=== PATIENT | female | born 1990 ===

== ENCOUNTER 2019-10-25 15:30 | Inpatient (IN) | payer OTHER ==
[~2019-10-25] VITALS: Ht 149.9 cm; Wt 70.8 kg
[2019-11-01] MEDS ORDERED: PRENATAL CAPLE1 EAC1 PO (19:17)
== END 2019-11-04 19:41 | disposition home or self-care (01) | DRG 807 ==
LOC: LDR 11-01 18:14 → SURG-SUITE 11-02 10:11 → OB/GYN 11-09 15:30
PROVIDERS: ADMIT Obstetrics & Gynecology
PROC: 10E0XZZ Delivery of Products of Conception, External Approach (ICD-10-PCS; principal; 2019-11-02)
PROC: 0W8NXZZ Division of Female Perineum, External Approach (ICD-10-PCS; 2019-11-02)
PROC: 4A1HXFZ Monitoring of Products of Conception, Cardiac Rhythm, External Approach (ICD-10-PCS; 2019-11-02)
PROC: 3E033VJ Introduction of Other Hormone into Peripheral Vein, Percutaneous Approach (ICD-10-PCS; 2019-11-02)
PROC: 0HQ9XZZ Repair Perineum Skin, External Approach (ICD-10-PCS; 2019-11-02)
DX: O70.0 First degree perineal laceration during delivery (principal); Z37.0 Single live birth; Z3A.39 39 weeks gestation of pregnancy